=== PATIENT | male | born 1995 | race Caucasian/White ===

== ENCOUNTER 2021-05-03 09:31 | Inpatient (IN) ==
--- NOTE | 2021-04-13 09:11 | PAT Medication Instructions ---
Medication Instructions Date of Service April 13, 2021 Home Medications Medical Marijauna 1 dose INHALATION UD PRN DO NOT take the morning of surgery Medical Marijauna 1 dose INHALATION UD PRN Other Notes If you have any questions please call us at [phone] or [phone] or [phone] or [phone]
--- NOTE | 2021-04-16 09:20 | Anesthesiology Consultation ---
Date of Service April 16, 2021 Assessment & Plan (1) Encounter for pre-operative examination: - COVID screening: Per assessment on 04/16: Travel screen negative, no known COVID-19 positive contacts or current COVID-19 related symptoms. Surgeon arranging preop COVID testing. Awaiting results. - Preop labs: T&S missed when preop labs drawn. No known hx of blood transfusions. Will order for AM DOS. Chart Review Chart Review: Acceptable Risk for Surgery (pending T&S AM DOS) and Patient seen in Pre Admission Testing Teaching & Discussion Pre-Anesthesia Teaching/Discussion Notes: Instructed NPO after midnight before surgery,except medications with 15 cc of water. Medication instructions provided according to the PAT guidelines. 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 Ureteropelvic junction (UPJ) obstruction, right Exercise / Class Metabolic Activity II 4-5 Yardwork/Stairs/Walk up hill Past Family History Family History Grandmother (Maternal) Diabetes Family history of diabetes mellitus Grandfather (Maternal) Colon cancer Diabetes Family history of diabetes mellitus Grandfather (Paternal) Nephrolithiasis Father Myocardial infarction Other No family history of adverse response to anesthesia Past Surgical History Surgical History H/O elbow surgery ? Right side (hardware since removed) Past Anesthesia History No Hx of Anesthesia Complications and No Family Hx of Anesthesia Complications History of PONV No Hx of PONV and No Hx of Motion Sickness Social History Smoking Status: Current every day smoker tobacco type: cigarettes Smoking cigarettes per day: 10-15 cigs/day x 8 years Do You Dip or Chew Tobacco: No Hx Alcohol Use: Yes Alcohol type: beer alcohol intake frequency: a few times a month Hx Substance Use: Yes substance use type: marijuana (Medical marijuana PRN (+ card)) Review of Systems Patient denies chest pain, shortness of breath, dyspnea on exertion, fever, chills, cough, wheezing, palpitations. Physical Exam Vital Signs VITALS BP 112/74 P 87 TEMP WNL SP02 96%RA RESP 16 PHYSICAL Full cervical extension range of motion. Full TMJ range of motion. TMD 3 finger breaths Mallampati Score 1 Dentition: intact Lungs: clear throughout to auscultation Cardiac: regular rate and rhythm, no murmurs noted Spine: normal Carotid arteries: negative bruit Extremities: no edema Lab Results Anesthesia Preop Results Results Anesthesia Widget: WBC 4.17 K/uL (4.8-10.8) L 04/16/21 Hgb 14.3 g/dL (14.0-18.0) 04/16/21 Hct 40.9 % (42-52) L 04/16/21 Plt 230 K/uL (130-400) 04/16/21 Na 140 mmol/L (136-145) 04/16/21 K 4.1 mmol/L (3.5-5.1) 04/16/21 Cl 110 mmol/L (98-107) H 04/16/21 CO2 29 mmol/L (21-32) 04/16/21 BUN 17 mg/dl (7-18) 04/16/21 Creat 1.07 mg/dl (0.6-1.4) 04/16/21 Glucose Level 99 mg/dl (70-99) 04/16/21 Urine Color Yellow 04/16/21 Urine Appearance Clear (Clear) 04/16/21 Urine pH 6.5 (4.5-7.5) 04/16/21 Urine Specific Timbo 1.021 (1.000-1.030) 04/16/21 Urine Protein Negative (Negative) 04/16/21 Urine Glucose (UA) Negative (Negative) 04/16/21 Urine Ketones Negative (Negative) 04/16/21 Urine Blood Negative (Negative) 04/16/21 Urine Nitrite Negative (Negative) 04/16/21 Urine Bilirubin Negative (Negative) 04/16/21 Urine Urobilinogen Negative (Negative) 04/16/21 Urine Leukocyte Esterase Negative (Negative) 04/16/21 Urine WBC (Auto) 1-5 /hpf (0-5) 03/12/21 Urine RBC (Auto) 0-4 /hpf (0-4) 03/12/21 Urine Hyaline Casts (Auto) 0 /lpf (0-5) 03/12/21 Urine Epithelial Cells (Auto) 5-10 /lpf (0-5) H 03/12/21 Urine Bacteria (Auto) Negative (Negative) 03/12/21 Lab Comments: Low WBC > report to be forwarded to PCP for continuity of care Testing Electrocardiogram Date: 04/16/21 NSR at 74bpm. iRBBB. unconfirmed report. Chest X-Ray Date: 04/16/21 FINDINGS: Cardiomediastinal and hilar silhouettes are within normal limits. No pneumothorax, pleural effusion, airspace consolidation or overt pulmonary edema. Bones of the chest appear grossly intact. The patient is slightly rotated on the lateral view. Mild convex left curvature of the mid to upper thoracic spine. IMPRESSION: No acute process.
[~2021-05-03 09:31] MED LIST: ACETAMINOPHEN 1000 MG/100 ML IV IV ONE; LARYING-O-JET KIT (LTA) ONE; LIDOCAINE 2% 2 ML VIAL/AMP(20MG/ML) INFIL ONE; LR 15ML/HR IV SCH; MIDAZOLAM HCL 1 MG/ML 2ML VIAL ONE; ONDANSETRON INJ 2 MG/ML 2 ML VIAL ONE; PROPOFOL IV EMULSION 10 MG/ML 20 ML VIAL IV ONE; ROCURONIUM BROMIDE 10 MG/ML 5 ML VIAL IV ONE; fentaNYL citrate 100 MCG/2 ML VIAL ONE
[2021-05-03] MEDS ORDERED: ATROPINE SULFATE 0.1 MG/ML 10ML SYR IV PRN (10:42)
[2021-05-03] MEDS ORDERED: ePHEDrine sulfate 50 MG/ML AMP IV PRN (10:42)
[2021-05-03] MEDS ORDERED: ONDANSETRON INJ 2 MG/ML 2 ML VIAL IV PRN (10:42)
--- NOTE | 2021-05-03 11:18 | History & Physical Report ---
Date of Service May 03, 2021 Assessment & Plan (1) Ureteropelvic junction (UPJ) obstruction, right: Plan: Risks and benefits discussed at length for procedure. These include bleeding, infection, injury to surrounding tissues or organs, and risks associated with anesthesia. Patient states understanding and agrees to proceed. Will sign consent and proceed. Plan for Right Nephrectomy (2) Nonfunctioning kidney: History of Present Illness Primary Care Provider: NO PCP Patient here for procedure. No changes in medical issues. No major changes in u rinary issues. Continued issues and concerns. No change in pain or discomfort. No severe fevers or chills. No chest pain or shortness of breath. Risks and benefits discussed at length for procedure. These include bleeding, infection, injury to surrounding tissues or organs, and risks associated with anesthesia. Patient and/or family states understanding and agrees to proceed. Consent and supporting information completed. 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 Ureteropelvic junction (UPJ) obstruction, right Surgical History H/O elbow surgery ? Right side (hardware since removed) Family History Grandmother (Maternal) Diabetes Family history of diabetes mellitus Grandfather (Maternal) Colon cancer Diabetes Family history of diabetes mellitus Grandfather (Paternal) Nephrolithiasis Father Myocardial infarction Other No family history of adverse response to anesthesia Social History Smoking Status: Current every day smoker Tobacco Type: Cigarettes Cigarettes Per Day: 10-15 cigs/day x 8 years; Second Hand Exposure: Yes; Do You Dip or Chew Tobacco: No; Tobacco Cessation Education Requested by Patient: No Hx Alcohol Use: Yes Alcohol type: beer Hx Substance Use: Yes Preferred Language: Finnish Rn Intensive Care Unit Required: No Beliefs That Will Affect Care: None marital status: Single Current Living Situation: Alone current occupational status: employed 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 No Acute illness. . HEENT: Inspection normal. Normal inspection of face. Normal inspection of neck. Psychologic: Normal affect/No change in mentation. Respiratory: No use of accessory muscles. No respiratory changes or exacerbation or changes with tachypnea or dyspnea. Cardiovascular: No tachycardia Skin: [place] and Dry. No new rashes or visible lesions. Abdomen: Normal inspection. No guarding. Results & Data ([facility]) Vital Signs (Past 12 Hours) Vital Signs Temp Pulse Resp BP Pulse Ox 05/03/21 09:53 36.8 C 68 20 108/77 97 PG Care Time/CCT Total # of Minutes Spent Total Time Spent with Patient: Total time spent is greater than 50% in coordination of care (as documented) at patient's floor/unit and/or counseling patient: Coding Level of Care Code None Diagnoses Ureteropelvic junction (UPJ) obstruction, right N13.5 Nonfunctioning kidney N28.9
[2021-05-03] MEDS ORDERED: BUPIVACAINE 0.5 % 5 MG/1 ML MPF 30ML VIAL ONE (11:28)
[2021-05-03] MEDS: ceFAZolin 2000MG 2,000 MG/15 ML SYR IV SCH ×4 (11:37→19:34)
[2021-05-03] MEDS ORDERED: KETAMINE 50 MG/5 ML SYRINGE ONE (12:01)
[2021-05-03] MEDS ORDERED: ROCURONIUM BROMIDE 10 MG/ML 5 ML VIAL IV ONE ×2 (12:13)
[2021-05-03] MEDS ORDERED: fentaNYL citrate 100 MCG/2 ML VIAL ONE (12:46)
[2021-05-03] MEDS ORDERED: FLOSEAL HEMOSTATIC MATRIX 10ML TOP ONE (12:56)
[2021-05-03] MEDS ORDERED: SURGICEL ABSORB HEMOSTAT 2IN X 14IN TOP ONE (12:56)
[2021-05-03] MEDS ORDERED: DEXAMETHASONE SOD INJ 4 MG/ML VIAL ONE (13:05)
[2021-05-03] MEDS ORDERED: ONDANSETRON INJ 2 MG/ML 2 ML VIAL ONE (13:05)
[2021-05-03] MEDS ORDERED: ceFAZolin 1000MG 1,000 MG/7.5 ML SYR IV ONE (13:08)
--- NOTE | 2021-05-03 13:46 | Operative Report ---
PG Post Operative Report Pre & Post Diagnosis Operation Date: 05/03/21 11:50 Pre-Op Diagnosis: Atrophic Right Kidney Post-Op Diagnosis: Atrophic Right Kidney I identified the patient and participated in the time-out.: Yes Procedure Operation Date: 05/03/21 11:50 Actual Procedures p Right Laparoscopic Hand Assisted Nephrectomy Radical(Right) - Ismael wells DO Surgeon Ismael Machado, II, DO Communication Equipment Mechanic Lam HONEYCUTT Estimated Blood Loss 50 Findings Consistent with Post-Op Diagnosis Atrophic Non functioning Right kidney with Likely UPJ obstruction. Specimens Right Radical kidney Drains 18 Fr Louie catheter Anesthesia Type General Complications none Disposition Disposition: Recovery Room Indications Patient with Symptomatic and nonfunctioning right kidney causing significant pain. Risk and benefits were discussed at length. Patient elected to undergo a hand assisted laparoscopic radical nephrectomy. Description of Procedure The patient was brought to the operative suite and placed under general endotracheal intubation anesthesia in the supine position. The patient was positioned with the right side propped with support. The patient was placed into a flex'ed position and then placed into mild Trendelenberg. At this point, the patient prepped and draped in the usual sterile fashion and a timeout was completed. Preoperative antibiotics had been given. SCD's were placed on the patient's lower extremities. A catheter was placed using sterile technique. With the time out completed the patient was leveled and the skin was marked. A inferior umbilical midline incision was marked. The right abdomen was marked and a dunne incision was marked for the gel-port. The area was anesthetized and an incision was made into the skin and subcutaneous tissues. The tissues were gently dissected to expose the fascial layer. A hemostat was used to gently grasp the anterior rectus sheath and a Metzenbaum scissor was used to open. The muscle layers were spread and the rectus muscle retracted medially. This exposed the peritoneum. This was then entered and the entire area inspected. The abdominal cavity was inspected and no significant adhesions were noted in the region. The anterior rectus sheath was then further opened and the rectus muscles retracted medially. The fascia was opened more laterally. At this point, the hand assist gel port was placed. The midline inferior and superior camera/working port sites were assessed. The planned port sites were anesthetized. A small incision was made into the skin and subcutaneous tissues. A 12 mm camera port was placed. This was done with direct palpation as well as direct visualization. The cavity was insufflated to 15mmHG. A laparoscopic camera was placed and the abdominal cavity inspected. No concerning features were noted. The second 12 mm port was then placed in a similar fashion. The nurse practitioner Lam HONEYCUTT acted as a orthotics assistant and was integral in port placement, camera utilization, and first assisting for the entire remainder of the procedure. She remained in sterile attire and then proceeded to assist the remainder of the case. At this point, the white line of Toldt was assessed and opened. The laparoscopic harmonic device and blunt dissection was utilized. The colon was mobilized medially to expose the retroperitoneum and the area assessed. Adhesions were freed to allow mobilization. A small amount of adhesions were noted from the colon and were freed. These were dissected with blunt technique. Cautery was used to assist dissection and control bleeding. The retroperitoneal fat was assessed. The ureter and gonadal vein were identified. The ureter was isolated and dissection was taken superiorly. This was followed to the renal pelvis. The Renal Artery and Vein were then cleaned and exposed. They were individually isolated and were palpated and inspected for any signs of tumor within the vessel or enlarged lymph nodes or tissues. A window was dissected to allow the stapler access to the vessels. Care was taken to attempt to maintain the Gonadal vein. The Endo MAGGIE stapler with a vascular load was selected. This was placed across the renal artery and renal vein. The stapler was engaged and this was inspected. Good placement was noted and the tips were free and all surrounding tissue was retracted away from the are. The vein and the artery were transected after confirming isolation of the artery. The stump was assessed and no major bleeding was noted. A second vascular load was utilized to ligate and cut through additional surround tissues. The kidney and surrounding area was inspected. No major bleeding or areas of concern. The perinephric tissues posterior, lateral, superior, and inferior were then freed. Some Significant adhesions were noted laterally and superiorly. The Adrenal gland was not fully able to be identified but appeared to be spared during dissection and was not grossly identified with the mass/surgical specimen. No obvious tumor invasion into the surrounding tissues. This dissection was completed bluntly and with the harmonic device. Once fully freed and any accessory vessels and surrounding tissues fulgurated and sealed with the harmonic device, the ureter was dissected inferiorly with the surrounding retroperitoneal tissues. A stapler was used just superior to the crossing of the iliac vessels to staple and transect the ureter and retroperitoneal tissues. The specimen was then fully freed. It was then removed through the hand assist port and sent for pathologic analysis after inspection. The wound bed was thoroughly inspected with care to assess the liver, bowel, and ascending colon. The area was irrigated. No severe or significant bleeding was noted. The vessel stumps were also inspected. No bleeding or other major areas of concern were discovered. Surgicel hemostatic agent sheets were placed under and behind the spleen as well as on the vessel stumps. Hemostatic agents Floseal was also placed. This Hemostatic agent was also placed on the vessel stumps. No major bleeding or other issues. The entire dissection space was inspected one final time. No bleeding or injuries or areas of concern were noted. No tumor or other concerning features were noted. At this point, The port sites were all assessed laparoscopically. The port sites were closed with the Hernan Mueller device and a 1-0 Vicryl suture. The gel port was removed and the incision and fascial tissue was assessed. The wound bed was inspected a final time without any major bleeding. Counts were completed and correct x 2. The patient was moved out of the flexed position. The Peritoneum and Posterior rectus sheath was closed with a running 1-0 Vicryl. The anterior rectus sheath and external oblique fascia was closed with a running 1-0 PDS suture. The subcutaneous tissues were closed with a running 2-0 Vicryl suture. The skin at each port site as well as the skin of the midline incision was closed with surgical narciso. The area was cleaned and bandages were placed. The patient was moved back completely into the supine position The patient was further cleaned, aroused from anesthesia, and transferred to the pacu in stable condition having tolerated the procedure well with no complicatio ns. Counts were correct x 2 and no issues or complications were appreciated. I was present and participated in all aspects of the procedure. The nurse practitioner Lam HONEYCUTT as listed above was critical in the portions as mentioned above. She was also involved with the closure process including fascial closure Will plan to admit/observe postoperatively and monitor. Louie to be removed in the morning. I attest to the content of the Intraoperative Record and any orders documented therein. Any exceptions are noted below.
[2021-05-03] MEDS: fentaNYL citrate 100 MCG/2 ML VIAL IV PRN ×4 (13:55→14:25)
--- NOTE | 2021-05-03 14:20 | Anesthesiology Progress Note ---
Date of Service May 03, 2021 Anesthesia Post Procedure Vital Signs Vital Signs: Temp Pulse Pulse Resp BP Pulse Ox 05/03/21 14:15 58 L 18 120/76 98 05/03/21 14:05 56 L 14 112/78 100 05/03/21 13:55 68 16 124/84 100 05/03/21 13:45 36 C L 70 17 125/84 100 05/03/21 09:53 36.8 C 68 20 108/77 97 Pain Intensity Right Abdomen: Pain Intensity: 7 Transfer of Care Handoff Completed per policy Notes Mental Status: alert / awake / arousable and participated in evaluation Patient Amnestic to Procedure: Yes Nausea / Vomiting: adequately controlled Pain: adequately controlled Airway Patency, RR, SpO2: stable & adequate BP & HR: stable & adequate Hydration State: stable & adequate Anesthetic Complications: no major complications apparent and Pt Satisfied with anesthetic care
[2021-05-03 14:36] LABS: Basophils # (auto) 0.01 K/uL (0-0.2); Basophils % (auto) 0.1 %; Eosinophils # (auto) 0.07 K/uL (0-0.5); Eosinophils % (auto) 0.4 %; Hematocrit (blood only) 40.7 % (42-52); Hemoglobin 14.2 g/dL (14.0-18.0); Immature Granulocytes # (auto) 0.05 K/uL (0.00-0.02); Immature Granulocytes % (auto) 0.3 %; Lymphocytes # (auto) 0.88 K/uL (1.2-3.4); Lymphocytes % (auto) 5.4 %; Mean Corpuscular Hemoglobin 32.1 pg (25-34); Mean Corpuscular Volume 92.1 fL (80-100); Mean Platelet Volume 11.3 fL (7.4-10.4); Monocytes # (auto) 0.13 K/uL (0.11-0.59); Monocytes % (auto) 0.8 %; Neutrophils # (auto) 15.07 K/uL (1.4-6.5); Platelet Count 242 K/uL (130-400); RDW Coefficient of Variation 12.4 % (11.5-14.5); RDW Standard Deviation 42.1 fL (36.4-46.3); Red Blood Count 4.42 M/uL (4.7-6.1); White Blood Count 16.21 K/uL (4.8-10.8)
[2021-05-03 14:43] LABS: Mean Corpuscular Hgb Conc 34.9 g/dL (32-36)
[2021-05-03 14:56] LABS: BUN Creatinine Ratio 11.9 (10-20); Calcium 8.3 mg/dl (8.5-10.1); Creatinine Clr Calc Pharmacy 91.9 ml/min; Est GFR (African American) 90.4 ml/min; Potassium 4.1 mmol/L (3.5-5.1)
[2021-05-03] MEDS ORDERED: MoRPHine SULFATE 2 MG/ML CARP IV PRN (15:28)
[2021-05-03] MEDS ORDERED: ACETAMINOPHEN 325 MG TAB PO PRN (15:28)
[2021-05-03] MEDS ORDERED: oxyCODONE HCL IR 5 MG TAB (IMMEDIATE RELEASE) PO PRN (15:28)
[2021-05-03] MEDS: LACTATED RINGER'S 1,000 ML IV SCH (15:38)
[2021-05-03] MEDS: oxyCODONE HCL IR 5 MG TAB (IMMEDIATE RELEASE) PO PRN ×2 (16:39→21:13)
[2021-05-03] MEDS: NICOTINE 21 MG/24 HR TDSY TD SCH (19:03)
[2021-05-03] MEDS: MoRPHine SULFATE 2 MG/ML CARP IV PRN (19:33)
[2021-05-03] MEDS: ONDANSETRON INJ 2 MG/ML 2 ML VIAL IV PRN (19:41)
[2021-05-04] MEDS: ONDANSETRON INJ 2 MG/ML 2 ML VIAL IV PRN (01:11)
[2021-05-04] MEDS: LACTATED RINGER'S 1,000 ML IV SCH (01:11)
[2021-05-04] MEDS: MoRPHine SULFATE 2 MG/ML CARP IV PRN (01:11)
[2021-05-04] MEDS: ceFAZolin 2000MG 2,000 MG/15 ML SYR IV SCH (04:33)
[2021-05-04] MEDS: oxyCODONE HCL IR 5 MG TAB (IMMEDIATE RELEASE) PO PRN ×2 (04:33→10:48)
[2021-05-04 07:31] LABS: Basophils # (auto) 0.01 K/uL (0-0.2); Basophils % (auto) 0.1 %; Hematocrit (blood only) 38.4 % (42-52); Hemoglobin 13.5 g/dL (14.0-18.0); Immature Granulocytes # (auto) 0.02 K/uL (0.00-0.02); Immature Granulocytes % (auto) 0.2 %; Lymphocytes # (auto) 0.78 K/uL (1.2-3.4); Lymphocytes % (auto) 6.7 %; Mean Corpuscular Hemoglobin 32.1 pg (25-34); Mean Corpuscular Hgb Conc 35.2 g/dL (32-36); Mean Corpuscular Volume 91.4 fL (80-100); Mean Platelet Volume 11.7 fL (7.4-10.4); Monocytes # (auto) 1.23 K/uL (0.11-0.59); Monocytes % (auto) 10.5 %; Neutrophils # (auto) 9.63 K/uL (1.4-6.5); Neutrophils % (auto) 82.5 %; Platelet Count 240 K/uL (130-400); RDW Coefficient of Variation 12.4 % (11.5-14.5); RDW Standard Deviation 41.5 fL (36.4-46.3); White Blood Count 11.67 K/uL (4.8-10.8)
--- NOTE | 2021-05-04 07:48 | Urology Progress Note ---
Date of Service May 04, 2021 Assessment & Plan (1) Nonfunctioning kidney: Plan: 25yo M admitted s/p right radical nephrectomy for atrophic non functioning right kidney - Postop day #1 s/p Right Laparoscopic Hand Assisted Nephrectomy Radical by Dr. Machado - Afebrile, VSS. - Labs reviewed, Wbc 11.67, Hgb 13.5, and creatinine 1.09 - He is progressing as expected, requesting to go home today. - Remove Louie catheter and monitor ability to spontaneously void - Advance diet as tolerated - Encourage ambulation - Continue supportive care and pain management - Will reassess later today and likely discharge home if he continues to progress - Pt reassessed this afternoon - Patient feeling well, progressing as expected. - Requesting to be discharged. - No nausea or vomiting. - Voiding spontaneously without difficulty following catheter removal this morning. - Ambulating without dizziness or lightheadedness. - Expected clinical course reviewed with patient, he verbalized understanding. All questions answered. - Postoperative follow-up appointments in place. - Stable for discharge Admission and Anticipated Discharge Date Admission Date: May 03, 2021 Subjective Pt examined at bedside this AM. Awake, sitting in bedside chair on arrival. Patient states he is very irritated and agitated this morning and reports this is due to "not smoking for several days." He is demanding to be discharged home today. Having some abdominal pain, mostly with movement. Managing with PO pain medication. Some nausea and vomiting yesterday, but denies any so far today. Tolerating clear liquid diet. Louie intact, draining clear yellow urine. No fevers or chills. Offers no additional complaints at time of exam. Louie output overnight - 1250ml Review of Systems Constitutional: as per Subjective / HPI Gastrointestinal: as per Subjective / HPI Genitourinary: + as per Subjective / HPI Psychiatric: as per Subjective / HPI Physical Exam Constitutional: no acute distress Respiratory: normal respiratory effort; no labored breathing and no audible wheezes Gastrointestinal (Abdomen): Percussion/Palpation: abdomen soft; abdomen nontender and no guarding Surgical incisions appropriate, narciso intact. Gauze dressing and tape c/d/i to incisions. Skin: No visible rashes or lesions to exposed skin areas Neurologic: awake Psychiatric: Orientation: alert and oriented x 3 Affect: + irritable affect Mood: + irritable mood Genitourinary: Louie catheter intact, draining clear yellow urine Results & Data ([facility]) Vital Signs (Past 12 Hours) Vital Signs Temp Pulse Resp BP Pulse Ox 05/04/21 01:51 36.5 C 76 16 126/78 97 05/03/21 22:00 36.7 C 76 20 145/78 H 96 PG Care Time/CCT Total # of Minutes Spent Total Time Spent with Patient: Total time spent is greater than 50% in coordination of care (as documented) at patient's floor/unit and/or counseling patient: Coding Level of Care Code None Diagnoses Nonfunctioning kidney N28.9
[2021-05-04 08:07] LABS: BUN Creatinine Ratio 13.8 (10-20); Calcium 8.8 mg/dl (8.5-10.1); Creatinine Clr Calc Pharmacy 107.1 ml/min; Est GFR (African American) 108.8 ml/min; Est GFR (Non-African American) 93.8 ml/min; Potassium 4.1 mmol/L (3.5-5.1)
[2021-05-04] MEDS: NICOTINE 21 MG/24 HR TDSY TD SCH (08:16)
--- NOTE | 2021-05-07 12:57 | Discharge Summary ---
Date of Service May 07, 2021 Admission HPI Per Admitting Provider Patient here for procedure. No changes in medical issues. No major changes in urinary issues. Continued issues and concerns. No change in pain or discomfort. No severe fevers or chills. No chest pain or shortness of breath. Risks and benefits discussed at length for procedure. These include bleeding, infection, injury to surrounding tissues or organs, and risks associated with anesthesia. Patient and/or family states understanding and agrees to proceed. Consent and supporting information completed. Admission Exam Per Admitting Provider See H&P Principal Diagnosis Nonfunctioning Right Kidney Discharge Exam General: Alert in no acute distress. HEENT: Normocephalic Atraumatic. Inspection normal. Psychologic: Normal affect. Skin: [place] and Dry. No rashes or visible lesions. Abdomen: Soft Non-distended. No rebound or guarding. Discharge Data Allergies Allergy/AdvReac Type Severity Reaction Status Date / Time No Known Allergies Verified 04/12/21 10:12 Procedures Performed Operation Date: 05/03/21 11:50 Actual Procedures p Right Laparoscopic Hand Assisted Nephrectomy Radical(Right) - Ismael Machado, Hospital Course (1) Nonfunctioning kidney: 25yo M admitted s/p right radical nephrectomy for atrophic non functioning right kidney - Postop day #1 s/p Right Laparoscopic Hand Assisted Nephrectomy Radical by Dr. Machado - Afebrile, VSS. - Labs reviewed, Wbc 11.67, Hgb 13.5, and creatinine 1.09 - He is progressing as expected, requesting to go home today. - Remove Louie catheter and monitor ability to spontaneously void - Advance diet as tolerated - Encourage ambulation - Continue supportive care and pain management - Will reassess later today and likely discharge home if he continues to progress - Pt reassessed this afternoon - Patient feeling well, progressing as expected. - Requesting to be discharged. - No nausea or vomiting. - Voiding spontaneously without difficulty following catheter removal this morning. - Ambulating without dizziness or lightheadedness. - Expected clinical course reviewed with patient, he verbalized understanding. All questions answered. - Postoperative follow-up appointments in place. 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 Ok to shower. Sexual Activity: Wait until after follow-up appointment Exercise/Sports: Wait until after follow-up appointment Driving/Machine Use: Do not drive while taking prescription pain medication. Non-emergency contact: Surgeon and Urologist Call non-emergency contact if: you have any medication questions, your symptoms worsen, your pain is not controlled, you have a fever, your temperature is above 101, your wound has increased redness, your wound has increased drainage and your wound pain has increased Follow-up/Referrals: Ismael Machado DO [Physician] - 05/23/21 10:40 am PCPJAMMIE [Primary Care Provider] - Urology,Nurse [FAKE FOR SCHEDULES] - 05/15/21 10:00 am (Staple removal) Diet: Regular Addtl Attending Provider Instructions: Please take all medications as prescribed and keep all follow-ups as scheduled. Please call our office at [phone] with any questions, concerns or need to reschedule appointments for any reason. We are happy to assist you. Recovering at home: We recommend having someone with you for the first few days after surgery to help care for you. It is okay to shower tomorrow. Please avoid swimming, bathing or using hot tub until incisions are well healed. Avoid driving until you are not requiring pain medication any further. Walk at least a few times a day. Increase your distance, as you feel able. Stairs in your home are okay. Please avoid strenuous or sexual activity until your follow-up. We recommend using stool softener (i.e. Colace) to prevent constipation and straining, especially the first two weeks post operatively. Call [facility] at [phone] if you experience: Chest pain or trouble breathing (call [phone] or go to the hospital). Fever of 101F or higher Symptoms of infection at incision site, including redness or swelling, warmth, or bad-smelling drainage If you have catheter, and you notice: o Bloody urine or drainage that is dark red or has large clots (Please remember a small amount of blood is normal) o No drainage from the catheter for more than 6 hours o The catheter comes out of your bladder Pain that is not controlled with medicines Pending Studies at Discharge: Yes Stand-Alone Forms: My [facility] [employer], Smoking Cessation Medications and DC Order Prescriptions: New docusate sodium [Colace] 100 mg capsule 100 mg PO BID Qty: 30 RF: 0 oxycodone-acetaminophen [Percocet] 5-325 mg tablet 1 tab PO Q8H PRN (Reason: pain) Qty: 7 RF: 0 Continued Medical Marijauna 1 dose inhalation UD PRN (Reason: Anxiety) RF: 0 Discharge Orders: Discharge Order (Routine); Ordered 05/04/21 Ordered By: Nan Koo/Other Patient Handouts: Discharge Instructions for Nephrectomy Admission Data Admit Date/Time: 05/03/21 13:48 Attending Provider: Ismael Machado Admit Provider: Ismael Machado Primary Care Provider: PCP,NO Other Interventions: Discharge Summary Assessment (RN) Last Done: 05/04/21 12:37 Coding Level of Care Code D/C DAY MANAGEMENT <30 MINS Diagnoses Nonfunctioning kidney N28.9
== END 2021-05-04 13:33 | disposition home or self-care (01) | DRG 661 ==
LOC: ASU 09:31 → PACUINP 13:48 → 3N 15:41
DX: N13.5 Crossing vessel and stricture of ureter without hydronephrosis; F17.210 Nicotine dependence, cigarettes, uncomplicated; N28.9 Disorder of kidney and ureter, unspecified